=== PATIENT | male | born 1980 | race African-American/Black ===

== ENCOUNTER 2023-10-01 12:35 | Inpatient (IN) | payer OTHER ==
[~2023-10-01 12:35] MED LIST: Iopamidol 370 76% 100 ML VIAL ONE
[2023-10-01] MEDS ORDERED: Tetracaine 0.5% PF 4 ML BOT ONE (12:41)
[2023-10-01 13:42] LABS: Hematocrit 41.6 % (38.8-50.0); Hemoglobin 13.4 g/dL (13.5-17.5); Mean Corpuscular HGB CONC 32.2 g/dL (32.0-36.0); Mean Corpuscular Hemoglobin 27.7 pg (27.0-33.0); Mean Corpuscular Volume 86.1 fL (81.2-95.1); Mean Platelet Volume 13.4 fL (7.4-10.4); Platelet Count 109 10x3/uL (150-450); RBC Distribution Width 13.9 % (11.5-14.5); Red Blood Cell (RBC) Count 4.83 10x6/uL (4.32-5.72); White Blood Cell (WBC) Count 8.8 10x3/uL (3.5-10.5)
[2023-10-01 13:49] LABS: INR-International Normal Ratio 1.1; MDiff Complete? YES; PTT 26.1 sec (22.0-33.0); Prothrombin Time 11.5 sec (9.5-12.1)
[2023-10-01 13:54] LABS: ALT (SGPT) 22 U/L (8-55); AST (SGOT) 17 U/L (5-34); Albumin 3.3 g/dL (3.5-5.0); Alkaline Phosphatase 72 U/L (40-110); Anion Gap 11 mmol/L (10-20); BUN (Urea Nitrogen) 20 mg/dL (8.9-20.6); Bilirubin, Total 0.4 mg/dL (0.2-1.2); CK (CPK) 345 U/L (30-200); Calc. Creatinine Clearance 0 mL/min (70-130); Calcium 9.5 mg/dL (7.8-10.44); Carbon Dioxide 29 mmol/L (22-29); Chloride 103 mmol/L (98-107); Estimated GFR 57; Globulin 3.5 g/dL (2.4-3.5); Glucose 219 mg/dL (70-105); Magnesium 1.8 mg/dL (1.6-2.6); Protein, Total 6.8 g/dL (6.0-8.3); Sodium 139 mmol/L (136-145)
[2023-10-01 14:00] LABS: Troponin I 0.042 ng/mL (< 0.028)
[2023-10-01 14:05] LABS: Eosinophils 8 % (0-10); Lymphocytes 23 % (21-51); Monocytes 8 % (0-10); Neutrophil 61 % (42-75)
[2023-10-01 14:07] LABS: Giant Platelets SLIGHT HPF (0-5); Platelet Adequacy Comment Appears Decreased; RBC Morph Comment Within Normal Limits
[2023-10-01] MEDS ORDERED: Aspirin Chewable 81 MG TAB ONE (14:08)
[2023-10-01] MEDS ORDERED: Acetaminophen 650 MG Suppository PR PRN (16:27)
[2023-10-01] MEDS ORDERED: Dextrose 5% in Water 1,000 ML IV PRN (16:27)
[2023-10-01] MEDS ORDERED: Glucagon 1 MG/ML KIT IM PRN (16:27)
[2023-10-01] MEDS ORDERED: Acetaminophen 325 MG TAB PO PRN (16:27)
[2023-10-01] MEDS ORDERED: hydrALAZINE 20 MG/ML VIAL SLOW IVP PRN (16:27)
[2023-10-01] MEDS ORDERED: Bisacodyl 10 MG SUPP PR PRN (16:27)
[2023-10-01] MEDS ORDERED: Senokot S 8.6-50 MG TAB PO PRN (16:27)
[2023-10-01] MEDS ORDERED: Dextrose 50% Abboject 50 ML SYRINGE SLOW IVP PRN (16:27)
[2023-10-01] MEDS ORDERED: Albuterol 2.5 MG (3 mL) NEB NEB PRN (18:36)
[2023-10-01] MEDS: Mometasone 100 MCG/PUFF (1 INHALER) INH SCH (19:04)
[2023-10-01] MEDS: Atorvastatin Calcium 40 MG TAB PO SCH (20:46)
[2023-10-01] MEDS: Famotidine 20 MG TAB PO SCH (20:46)
[2023-10-02 04:02] LABS: #Basophils 0.03 10x3/uL (0.0-0.2); #Eosinphils 0.78 10x3/uL (0.0-0.5); #Monocytes 0.69 10x3/uL (0.0-1.1); #Neutrophils 4.18 10x3/uL (1.5-8.4); %Basophils 0.4 % (0.0-2.0); %Eosinophils 9.9 % (0.0-6.0); %Lymphocytes 27.3 % (18.0-47.0); %Monocytes 8.8 % (0.0-10.0); %Neutrophils 53.3 % (40.0-75.0); Hematocrit 44.7 % (38.8-50.0); Hemoglobin 14.9 g/dL (13.5-17.5); Mean Corpuscular HGB CONC 33.3 g/dL (32.0-36.0); Mean Corpuscular Hemoglobin 28.6 pg (27.0-33.0); Mean Corpuscular Volume 85.8 fL (81.2-95.1); Mean Platelet Volume 13.5 fL (7.4-10.4); Platelet Count 116 10x3/uL (150-450); Red Blood Cell (RBC) Count 5.21 10x6/uL (4.32-5.72); White Blood Cell (WBC) Count 7.8 10x3/uL (3.5-10.5)
[2023-10-02 04:09] LABS: ALT (SGPT) 23 U/L (8-55); AST (SGOT) 15 U/L (5-34); Albumin 3.4 g/dL (3.5-5.0); Alkaline Phosphatase 70 U/L (40-110); Anion Gap 10 mmol/L (10-20); BUN (Urea Nitrogen) 19 mg/dL (8.9-20.6); Bilirubin, Total 0.6 mg/dL (0.2-1.2); Calc. Creatinine Clearance 102 mL/min (70-130); Calcium 9.6 mg/dL (7.8-10.44); Carbon Dioxide 29 mmol/L (22-29); Chloride 103 mmol/L (98-107); Estimated GFR 57; Globulin 3.9 g/dL (2.4-3.5); Glucose 228 mg/dL (70-105); Potassium 4.2 mmol/L (3.5-5.1); Protein, Total 7.3 g/dL (6.0-8.3); Sodium 138 mmol/L (136-145)
[2023-10-02] MEDS: Insulin Lispro 100 UNIT/ML 10 ML VIAL SC PRN ×2 (06:43→21:18)
[2023-10-02] MEDS: Bumetanide 1 MG TAB PO SCH (09:27)
[2023-10-02] MEDS: Aspirin 81 mg Enteric Coated Tablet PO SCH (09:28)
[2023-10-02] MEDS: Spironolactone 25 MG TAB PO SCH (09:28)
[2023-10-02] MEDS: Clopidogrel Bisulfate 75 MG TAB PO SCH (09:28)
[2023-10-02] MEDS: Enoxaparin 40 MG (0.4 mL) SYRINGE SC SCH (09:28)
[2023-10-02 12:21] LABS: Cardiac Risk 3.9 (Less than 4.5)
[2023-10-02] MEDS: Carvedilol 25 MG TAB PO SCH (16:10)
[2023-10-02] MEDS: Insulin NPH Human Isophane 100 UNITS/ML (10 ML VIAL) SC SCH (21:16)
[2023-10-02] MEDS: hydrALAZINE 25 MG TAB PO SCH (21:16)
[2023-10-03] MEDS: Insulin Lispro 100 UNIT/ML 10 ML VIAL SC PRN (06:50)
[2023-10-03] MEDS: Isosorbide Mononitrate 60 MG ER.TAB PO SCH (08:30)
[2023-10-03] MEDS: hydrALAZINE 20 MG/ML VIAL SLOW IVP SCH (09:35)
[2023-10-03 21:33] VITALS: BP 130/92; TEMP 97.9
== END 2023-10-03 20:45 | DRG 65 ==
LOC: EEVIPCON 12:35 → CSHERS 12:35 → CSHTELE 15:29
PROVIDERS: ADMIT Internal Medicine; ATTEND Internal Medicine
DX: I63.9 Cerebral infarction, unspecified (principal); I13.0 Hypertensive heart and chronic kidney disease with heart failure and stage 1 through stage 4 chronic kidney disease, or unspecified chronic kidney disease; I50.22 Chronic systolic (congestive) heart failure; N17.9 Acute kidney failure, unspecified; E78.5 Hyperlipidemia, unspecified; G47.33 Obstructive sleep apnea (adult) (pediatric); E11.22 Type 2 diabetes mellitus with diabetic chronic kidney disease; N18.30 Chronic kidney disease, stage 3 unspecified; E66.01 Morbid (severe) obesity due to excess calories; D69.6 Thrombocytopenia, unspecified; Z88.1 Allergy status to other antibiotic agents; Z91.010 Allergy to peanuts; Z88.8 Allergy status to other drugs, medicaments and biological substances; Z95.810 Presence of automatic (implantable) cardiac defibrillator; Z79.84 Long term (current) use of oral hypoglycemic drugs; Z98.890 Other specified postprocedural states; Z87.891 Personal history of nicotine dependence
CPT/HCPCS: 0042T; 36415; 36416; 70450; 71045; 80053; 80061; 82550; 83735; 83880; 84443; 84484; 85025; 85610; 85730; 93005; 93306; 94664; 94760; J0360; J1650; J1815; Q9967

== ENCOUNTER 2023-10-05 19:32 | Emergency (ER) | payer OTHER ==
[2023-10-05 20:30] LABS: ALT (SGPT) 33 U/L (8-55); AST (SGOT) 24 U/L (5-34); Albumin 3.7 g/dL (3.5-5.0); Alkaline Phosphatase 71 U/L (40-110); Anion Gap 14 mmol/L (10-20); BUN (Urea Nitrogen) 26 mg/dL (8.9-20.6); Bilirubin, Total 0.6 mg/dL (0.2-1.2); Calc. Creatinine Clearance 0 mL/min (70-130); Calcium 9.1 mg/dL (7.8-10.44); Carbon Dioxide 27 mmol/L (22-29); Chloride 99 mmol/L (98-107); Estimated GFR 46; Globulin 4.1 g/dL (2.4-3.5); Glucose 271 mg/dL (70-105); Lipase 39 U/L (8-78); Potassium 3.6 mmol/L (3.5-5.1); Protein, Total 7.8 g/dL (6.0-8.3); Sodium 136 mmol/L (136-145)
[2023-10-05 20:55] LABS: #Basophils 0.04 10x3/uL (0.0-0.2); #Eosinphils 0.84 10x3/uL (0.0-0.5); #Monocytes 0.76 10x3/uL (0.0-1.1); #Neutrophils 5.21 10x3/uL (1.5-8.4); %Basophils 0.5 % (0.0-2.0); %Eosinophils 9.9 % (0.0-6.0); %Lymphocytes 19.1 % (18.0-47.0); %Neutrophils 61.3 % (40.0-75.0); Hematocrit 47.9 % (38.8-50.0); Hemoglobin 15.4 g/dL (13.5-17.5); Mean Corpuscular HGB CONC 32.2 g/dL (32.0-36.0); Mean Corpuscular Hemoglobin 27.5 pg (27.0-33.0); Mean Corpuscular Volume 85.7 fL (81.2-95.1); Mean Platelet Volume 14.3 fL (7.4-10.4); Platelet Count 128 10x3/uL (150-450); RBC Distribution Width 14.1 % (11.5-14.5); Red Blood Cell (RBC) Count 5.59 10x6/uL (4.32-5.72); White Blood Cell (WBC) Count 8.5 10x3/uL (3.5-10.5)
[2023-10-05 21:02] LABS: Influenza A by NAA Not Detected (NotDetected); Influenza B by NAA Not Detected (NotDetected); SARS-CoV-2 NAA Rapid Test Not Detected (NotDetected)
[2023-10-05 21:17] LABS: Bilirubin Neg (Negative); Blood, Urine Negative (Negative); Clarity Clear (Clear); Glucose, Urine (Dipstick) 250 mg/dL (Negative); Ketone, Urine Negative (Negative); Leukocyte Negative (Negative); Nitrite Negative (Negative); Protein, Urine (Dipstick) 30 mg/dl (Neg-Trace); Specific Gravity, Urine 1.015 (1.005-1.030); Urobilinogen Normal mg/dL (Less than 2)
[2023-10-05 21:33] LABS: Bacteria/HPF None Seen HPF (None Seen); CAUTI Indications for Culture Pelvic or flank pain; RBC/HPF None Seen HPF (0-3); Squamous Epithelial 0-3 HPF (0-3); WBC/HPF None Seen HPF (0-3)
[2023-10-05 21:34] LABS: Urine Culture Reflex No No
== END 2023-10-05 23:06 ==
LOC: CSHERS 19:32
DX: E11.649 Type 2 diabetes mellitus with hypoglycemia without coma (principal); I10 Essential (primary) hypertension; I11.0 Hypertensive heart disease with heart failure; I50.9 Heart failure, unspecified; F17.210 Nicotine dependence, cigarettes, uncomplicated; Z79.82 Long term (current) use of aspirin; Z79.899 Other long term (current) drug therapy; Z79.4 Long term (current) use of insulin
CPT/HCPCS: 36415; 74177; 80053; 81001; 83605; 83690; 85025; 87040; 96360; Q9967

== ENCOUNTER 2024-01-26 01:11 | Emergency (ER) | payer OTHER ==
[2024-01-26] MEDS ORDERED: Magnesium 2 GM/50 ML BAG (IN WATER) ONE (01:28)
[2024-01-26] MEDS ORDERED: Furosemide 40 MG (4 mL) VIAL ONE (01:28)
[2024-01-26 01:48] LABS: Hematocrit 38.2 % (38.8-50.0); Hemoglobin 12.5 g/dL (13.5-17.5); Mean Corpuscular HGB CONC 32.7 g/dL (32.0-36.0); Mean Corpuscular Hemoglobin 28.7 pg (27.0-33.0); Mean Corpuscular Volume 87.8 fL (81.2-95.1); Mean Platelet Volume 13.2 fL (7.4-10.4); Platelet Count 130 10x3/uL (150-450); Red Blood Cell (RBC) Count 4.35 10x6/uL (4.32-5.72); White Blood Cell (WBC) Count 8.3 10x3/uL (3.5-10.5)
[2024-01-26 02:05] LABS: MDiff Complete? YES
[2024-01-26 02:09] LABS: ALT (SGPT) 25 U/L (8-55); AST (SGOT) 15 U/L (5-34); Albumin 3.2 g/dL (3.5-5.0); Alkaline Phosphatase 66 U/L (40-110); Anion Gap 11 mmol/L (10-20); BUN (Urea Nitrogen) 13 mg/dL (8.9-20.6); Bilirubin, Total 0.4 mg/dL (0.2-1.2); Calc. Creatinine Clearance 0 mL/min (70-130); Calcium 8.5 mg/dL (7.8-10.44); Carbon Dioxide 22 mmol/L (22-29); Chloride 111 mmol/L (98-107); Estimated GFR 76; Globulin 3.3 g/dL (2.4-3.5); Glucose 211 mg/dL (70-105); Magnesium 2.4 mg/dL (1.6-2.6); Potassium 3.7 mmol/L (3.5-5.1); Protein, Total 6.5 g/dL (6.0-8.3); Sodium 140 mmol/L (136-145); Troponin I 0.063 ng/mL (< 0.028)
[2024-01-26 02:22] LABS: Band 3 % (5-11); Eosinophils 6 % (0-10); Lymphocytes 17 % (21-51); Monocytes 10 % (0-10); Myelocyte 1 % (0-0); Neutrophil 59 % (42-75); Platelet Adequacy Comment Appears Decreased; Reactive Lymphocytes 3 % (0-10)
[2024-01-26 02:23] LABS: Large Platelets SLIGHT (None Seen); RBC Morph Comment Within Normal Limits
[2024-01-26 02:56] LABS: Actual Bicarbonate (HCO3v) 22.9 mEq/L (22-28); Analyzer IN Cardio CS ER; Base Excess -0.6 mEq/L (-2 - +2); Calcium, Ionized (venous) 1.14 mmol/L (1.16-1.32); Chloride (VBG) 105 mmol/L (98-106); Critical Notified By: CP.PH; Hematocrit-VBG 43 % (42.0-52.0); Hemoglobin (Hb) 14.5 g/dL (13.1-17.2); Potassium (VBG) 3.87 mmol/L (3.70-5.30); Puncture Site Other Site; Sodium 140 mmol/L (133-146)
[2024-01-26] MEDS ORDERED: Oseltamivir 75 MG CAP PO SCH (03:45)
[2024-01-26] MEDS ORDERED: Iopamidol 370 76% 100 ML VIAL ONE (11:59)
== END 2024-01-26 08:59 ==
LOC: EEVIPCON 01:11 → CSHERS 01:11
DX: R06.02 Shortness of breath (principal); J10.1 Influenza due to other identified influenza virus with other respiratory manifestations; R06.03 Acute respiratory distress; I13.0 Hypertensive heart and chronic kidney disease with heart failure and stage 1 through stage 4 chronic kidney disease, or unspecified chronic kidney disease; E11.22 Type 2 diabetes mellitus with diabetic chronic kidney disease; I50.9 Heart failure, unspecified; N18.30 Chronic kidney disease, stage 3 unspecified; F17.210 Nicotine dependence, cigarettes, uncomplicated; Z79.4 Long term (current) use of insulin; Z79.899 Other long term (current) drug therapy; Z86.718 Personal history of other venous thrombosis and embolism; Z79.82 Long term (current) use of aspirin
CPT/HCPCS: 36415; 71045; 71275; 80053; 82805; 83605; 83735; 83880; 84484; 85025; 85379; 87040; 87428; 93005; 94660; 94760; 96365; 96375; J1940; J3475; Q9967